=== PATIENT | male | born 1990 | race Two or more races ===

== ENCOUNTER 2020-10-20 17:52 | Emergency (ER) | payer SELFPAY ==
--- NOTE | 2020-10-20 18:50 | ER Document Report ---
ED Medical Screen (RME) - General Chief Complaint: Abdominal Pain Stated Complaint: UPPER ABDOMINAL PAIN Time Seen by Provider: 10/20/20 18:43 Mode of Arrival: Ambulatory Information source: Patient - HPI Patient complains to provider of: Left-sided abdominal pain Notes: 10/20/20 18:48 Patient here with complaints of some left lower/mid abdominal pain which started yesterday. Pain seems to be intermittent. Patient denies any nausea, vomiting, diarrhea. Denies any prior abdominal surgeries. No known history of diverticulitis or kidney stones. Pain seems to be somewhat better currently. He does report that the pain was quite severe earlier today. Exam: Nontoxic, no distress. Lungs clear and equal throughout. No focal abdominal tenderness on limited triage abdominal exam. Lungs clear and equal throughout. Heart sounds normal. An initial examination was made on the patient as part of the triage process, and it was determined a more comprehensive evaluation was necessary. Initial orders were placed and patient was transferred to another provider in the ED who assumed care and finished evaluation and plan. - Related Data Allergies/Adverse Reactions: No Known Allergies Allergy (Verified 10/20/20 18:38) Physical Exam - Vital signs Vitals: Temp Pulse Resp BP Pulse Ox 97.8 F 69 18 152/79 H 100 10/20/20 18:35 10/20/20 18:35 10/20/20 18:35 10/20/20 18:35 10/20/20 18:35 Course - Vital Signs Vital signs: Temp Pulse Resp BP Pulse Ox 97.8 F 69 18 152/79 H 100 10/20/20 18:35 10/20/20 18:35 10/20/20 18:35 10/20/20 18:35 10/20/20 18:35
--- NOTE | 2020-10-20 19:18 | RADIOLOGY REPORT (SQ) ---
EXAM DESCRIPTION: CT ABD/PELVIS NO ORAL OR IV IMAGES COMPLETED DATE/TIME: 10/20/2020 4:01 pm REASON FOR STUDY: left sided abd pain COMPARISON: None. TECHNIQUE: CT scan of the abdomen and pelvis performed without intravenous or oral contrast. Images reviewed with lung, soft tissue, and bone windows. Reconstructed coronal and sagittal MPR images revi ewed. All images stored on PACS. All CT scanners at this facility use dose modulation, iterative reconstruction, and/or weight based d osing when appropriate to reduce radiation dose to as low as reasonably achievable (ALARA). [facility]: Dose Right [facility]: CareDose [facility]: Dose Right [facility]: Teradose 4D [facility]: Elastera RADIATION DOSE: Total exam DLP 566mGy. LIMITATIONS: Suboptimal evaluation of the vasculature and solid organs due to lack of IV contrast. FINDINGS: LOWER CHEST: Lung bases are clear. NON-CONTRASTED LIVER, SPLEEN, ADRENALS: Evaluation limited by lack of IV contrast. No identified sign ificant masses. Marked diffuse decreased density of the hepatic parenchyma compatible with steatosis . There is some trace stranding along the inferior aspect of the spleen. PANCREAS: No masses. No peripancreatic inflammatory changes. GALLBLADDER: No identified stones by CT criteria. No inflammatory changes to suggest cholecystitis. RIGHT KIDNEY AND URETER: No suspicious masses. Assessment limited by lack of IV contrast. No signif icant calcifications. No hydronephrosis or hydroureter. LEFT KIDNEY AND URETER: No suspicious masses. Assessment limited by lack of IV contrast. No signifi cant calcifications. No hydronephrosis or hydroureter. AORTA AND RETROPERITONEUM: No aneurysm. No retroperitoneal masses or adenopathy. BOWEL AND PERITONEAL CAVITY: The stranding adjacent to the inferior aspect of the spleen abuts the pr oximal descending colon, though there is no significant adjacent wall thickening. No bowel dilatatio n. No other inflammatory change or fluid collection. APPENDIX: Normal. PELVIS, BLADDER, AND ABDOMINAL WALL:No abnormal masses. No free fluid. Bladder normal. BONES: No significant findings. OTHER: No other significant finding. IMPRESSION: 1. Mild fat stranding along the inferior aspect of the spleen which is otherwise normal in size with homogeneous density. The stranding abuts the adjacent colon without significant colon wall thickening. 2. Marked hepatic steatosis. COMMENT: Quality ID # [id number]: Final reports with documentation of one or more dose reduction techniques (e.g., Automated exposure control, adjustment of the mA and/or kV according to patient size, use of iterative reconstruction technique) TECHNICAL DOCUMENTATION: JOB ID: [id number] 2010 [employer]- All Rights Reserved Reading location - IP/workstation name: [email or web address]
[2020-10-20 19:24] LABS: HEMATOCRIT 45.5 % (37.9-51.0); HEMOGLOBIN 16.4 g/dL (13.5-17.0); MEAN CORPUSCULAR HEMOGLOBIN 32.6 pg (27.0-33.4); MEAN CORPUSCULAR HGB CONC 36.1 g/dL (32.0-36.0); MEAN CORPUSCULAR VOLUME 90 fl (80-97); PLATELET COUNT 262 10^3/uL (150-450); RED BLOOD COUNT 5.05 10^6/uL (4.35-5.55); RED CELL DISTRIBUTION WIDTH 13.5 % (11.5-14.0); WHITE BLOOD COUNT 10.5 10^3/uL (4.0-10.5)
[2020-10-20 19:26] LABS: APPEARANCE,URINE CLEAR; BILIRUBIN,URINE NEGATIVE (NEGATIVE); COLOR,URINE YELLOW; GLUCOSE, URINE NEGATIVE (NEGATIVE); KETONES,URINE NEGATIVE (NEGATIVE); LEUKOCYTE ESTERASE,URINE NEGATIVE (NEGATIVE); NITRITE,URINE NEGATIVE (NEGATIVE); PROTEIN,URINE NEGATIVE (NEGATIVE); URINE SPECIFIC GRAVITY 1.011
[2020-10-20 19:43] LABS: ALBUMIN 4.8 g/dL (3.5-5.0); ALKALINE PHOSPHATASE 95 U/L (38-126); ANION GAP 8 (5-19); ASPARTATE AMINO TRANSFERASE 77 U/L (17-59); BILIRUBIN,DIRECT 0.3 mg/dL (0.0-0.4); BILIRUBIN,TOTAL 0.9 mg/dL (0.2-1.3); BLOOD UREA NITROGEN 12 mg/dL (7-20); CALCIUM 10.2 mg/dL (8.4-10.2); CARBON DIOXIDE 30 mmol/L (22-30); CHLORIDE 102 mmol/L (98-107); GLUCOSE 106 mg/dL (75-110); POTASSIUM 3.9 mmol/L (3.6-5.0)
[2020-10-20 19:44] LABS: ABSOLUTE LYMPHOCYTES# (MANUAL) 3.2 10^3/uL (0.5-4.7); ABSOLUTE MONOCYTES # (MANUAL) 0.7 10^3/uL (0.1-1.4); BAND NEUTROPHILS % (MANUAL) 1 % (3-5); BASOPHILS % (MANUAL) 0 % (0-2); EOSINOPHILS % (MANUAL) 2 % (0-6); LYMPHOCYTES % (MANUAL) 23 % (13-45); MONOCYTES % (MANUAL) 7 % (3-13); SEGMENTED NEUTROPHILS % (MAN) 60 % (42-78); TOTAL CELLS COUNTED 100
[2020-10-20 19:47] LABS: PLATELET COMMENT ADEQUATE; PLATELET LARGE PRESENT; RBC MORPHOLOGY COMMENT NORMO-CYTIC/CHROMIC
--- NOTE | 2020-10-20 20:55 | ER Document Report ---
ED General - General Chief Complaint: Abdominal Pain Stated Complaint: UPPER ABDOMINAL PAIN Time Seen by Provider: 10/20/20 18:43 Mode of Arrival: Ambulatory - HPI Context: Chief Complaint: [Left upper quadrant abdominal pain] [This is a 30-year-old male who presents to the emergency department complaining of left upper quadrant pain that has been present for approximately 2 days. Patient denies history of recent trauma, recent infection, cough, fever, chills, shortness of breath, history of COVID-19 infection, sore throat, excessive fatigue. Patient states he has heartburn at least a couple times a week but states that the pain he is having today does not feel like his typical heartburn. ] History obtained from [patient] Symptoms began:[2 days ago] Onset: [Gradual] Timing: [Gradual] Quality: [Sharp] Intensity: [3] Location: [Left upper quadrant] Radiation: [Denies] [The pain does not migrate to a new location.] Aggravating factors: Deep breath Relieving factors: [none] [Denies] SOB [Denies] nausea [Denies] vomiting [Denies] sweats [Denies] fever [Denies] cough [Denies] calf or leg swelling or pain - Related Data Allergies/Adverse Reactions: No Known Allergies Allergy (Verified 10/20/20 18:38) Past Medical History - General Information source: Patient - Social History Smoking Status: Current Every Day Smoker Family History: Reviewed & Not Pertinent Review of Systems - Review of Systems Notes: Review of systems as below unless otherwise stated in HPI. CONSTITUTIONAL [No] fever, [No] chills. EYES [No] eye pain. ENT [No] URI symptoms, [No] sore throat, [No] ear pain. CARDIOVASCULAR [No] chest pain, [No] palpitations, [No] edema. RESPIRATORY [No] Cough, [No] SOB, [No] wheezing. GASTROINTESTINAL Positive abdominal pain, [No] nausea, [No] Diarrhea, [No] Vomiting, [No] constipation, [No] melena, [No] rectal bleeding. GENITOURINARY [No] dysuria, [No] urinary frequency, [No] hematuria, [No] urinary urgency MUSCULOSKELETAL [No] Back pain. SKIN [No] Rash. NEUROLOGIC [No] Headache, [No] recent seizures, [No] paralysis,[No] parathesias. ENDOCRINE [No] polyuria. HEMO/LYMPATIC [No] easy brusing PSYCHIATRIC [No] depression. Physical Exam - Vital signs Vitals: Temp Pulse Resp BP Pulse Ox 97.8 F 69 18 152/79 H 100 10/20/20 18:35 10/20/20 18:35 10/20/20 18:35 10/20/20 18:35 10/20/20 18:35 - Notes Notes: CONSTITUTIONAL [Vital signs reviewed, Patient appears comfortable, Alert and oriented X 3, Normal stature. Nontoxic appearance] HEAD [Atraumatic, Normocephalic.] EYES [Eyes are normal to inspection, No discharge from eyes, Extraocular muscles intact, Sclera are normal, Conjunctiva are normal.] ENT [External ears normal to inspection, Nose examination normal, Mouth normal to inspection.] NECK [Normal ROM, No jugular venous distention, No meningeal signs, ] RESPIRATORY CHEST [Chest is nontender, Breath sounds normal, No respiratory distress.] CARDIOVASCULAR [RRR, No murmurs, Normal S1 S2, No rub, No gallop.] ABDOMEN [Abdomen is mildly tender to palpation in the left upper quadrant, No pulsatile masses, No other masses, Bowel sounds normal, No distension, No peritoneal signs, No hernias.] BACK [There is no CVA Tenderness, There is no tenderness to palpation, Normal inspection.] UPPER EXTREMITY [Inspection normal, No cyanosis, No clubbing, No edema, LOWER EXTREMITY [Inspection normal, No cyanosis, No clubbing, No edema, No calf tenderness, NEURO [No focal motor deficits, No focal sensory deficits, Speech normal.] SKIN [Skin is warm, Skin is dry, Skin is normal color.] PSYCHIATRIC [Normal affect. ] Course - Re-evaluation Re-evalutation: 10/20/20 20:55 Differential diagnosis: Lymphadenitis, viral infection 10/20/20 21:15 MDM: The patient's CAT scan shows mild fat stranding along the inferior aspect of the spleen which is otherwise normal in size with homogenous density. The impression also states that the stranding abuts the adjacent colon without significant colon wall thickening. These findings were discussed with Dr. Mane with radiology partners at 2100 hrs. He stated that looking at the CT scan while not typical in location, the appearance of the previously noted fat stranding seems most suggestive of epiploic appendagitis. Based on this d iscussion with the radiologist, I am inclined just to treat the patient with NSAIDs. I am also going to give him instructions on [id number] proton pump inhibitors and use of Pepcid to help with heartburn symptoms. All results of ED MSE discussed with patient. All questions were answered prior to discharge. Emergency signs and symptoms, reasons to return to the emergency department discussed with patient. - Vital Signs Vital signs: Temp Pulse Resp BP Pulse Ox 97.8 F 69 18 152/79 H 100 10/20/20 18:35 10/20/20 18:35 10/20/20 18:35 10/20/20 18:35 10/20/20 18:35 - Laboratory Results Result Diagrams: 10/20/20 19:11 10/20/20 19:11 Laboratory Results Interpreted: 10/20/20 10/20/20 10/20/20 19:11 19:11 19:11 [facility]CHC 36.1 H Band Neutrophils % 1 L AST 77 H ALT 166 H Urine Urobilinogen 2.0 H Critical Laboratory Results Reviewed: Yes Attending or Supervising Physician who Reviewed Labs: JUANCHO CHAHAL IV - Radiology Results Critical Radiology Results Reviewed: Yes Attending or Supervising Physician who Reviewed Radiology: JUANCHO CHAHAL IV Discharge - Discharge Clinical Impression: Acute lymphadenitis Condition: Stable Disposition: HOME, SELF-CARE Additional Instructions: Return to the Emergency Department without delay if any worse. Purchase some Zegerid from your local drugstore and take 1 tablet each morning to help prevent heartburn symptoms. You can also purchase some Pepcid (famotidine) 20 mg tablets and take 4 of them at one time for severe "middle of the night" heartburn. HOME CARE INSTRUCTIONS & INFORMATION: Thank you for choosing us for your medical needs. We hope you're satisfied with the care you received. After you leave, you must properly care for your problem and, at the same time, observe its progress. Any condition can change. Some illnesses can change rapidly over hours or days. If your condition worsens, return to the Emergency Department or see your physician promptly. ABOUT YOUR X-RAYS AND EKG'S: If you had an EKG or X-rays taken, they have been read by the Emergency Physician. The X-rays and EKG's will also be read by a Radiologist or Outside Medical Sales Representative within 24 hours. If discrepancies are noted, you will be notified by telephone. Please be certain the ED has a correct telephone number & address where you can be reached. Also, realize that some fractures or abnormalities do not show up on initial X-rays. If your symptoms continue, see your physician. ABOUT YOUR LABORATORY TEST: If you had laboratory tests, the results have been reviewed by the Emergency Physician. Some test results (for example cultures) may not be available for several days. You will be contacted if any test result shows you need additional treatment. Please be certain the ED has a correct telephone number and address where you can be reached. ABOUT YOUR MEDICATIONS: You will receive instructions on how to take your medicine on the prescription label you receive. Additional information may be provided by the Pharmacy. If you have questions afterwards, call the ED for clarification or further instructions. Some prescribed medications may cause drowsiness. Do not perform tasks such as driving a car or operating machinery without consulting your Pharmacist. If you feel you need a refill of pain medication, your condition will need re-evaluation. Please do not call for a refill of any medication. ABOUT YOUR SIGNATURE: Signature of this document acknowledges to followin. Understanding that you received emergency treatment and that you may be released before al medical problems are known or treated. Please be certain the ED has a correct phone number & address where you can be reached. 2. Acknowledgement that you will arrange for follow-up care as recommended. 3. Authorization for the Emergency Physician to provide information to your follow-up Physician in order to maximize your care. AT ANY TIME, IF YOUR SYMPTOMS CHANGE SIGNIFICANTLY OR WORSEN OR YOU DEVELOP NEW SYMPTOMS, RETURN TO THE EMERGENCY DEPARTMENT IMMEDIATELY FOR RE-EVALUATION. OUR GOAL IS TO PROVIDE EXCELLENT MEDICAL CARE! WE HOPE THAT WE HAVE MET YOUR EXPECTATIONS DURING YOUR EMERGENCY DEPARTMENT VISIT AND THAT YOU FEEL YOU HAVE RECEIVED EXCELLENT CARE! Lymphadenopathy You have enlargement of lymph glands, called lymphadenopathy. Lymph glands filter tissue fluids. They help to fight infection. Most of the time, enlarged lymph glands are not serious. Lymph glands may react to a viral or bacterial infection by becoming swolle n and painful. When the infection goes away, the glands shrink. Sometimes a lymph gland will remain enlarged for a long time after an infection. Occasionally, a lymph gland may be overwhelmed by infection and form an abscess. If an enlarged lymph gland has signs that are suspicious for tumor, the doctor will recommend a biopsy. A suspicious gland usually is NOT painful, grows very slowly, and is rock-hard to touch. See the doctor or return if there is increasing swelling and redness, high fever, difficulty breathing, or any other change for the worse. Prescriptions: Ibuprofen [Ibu] 800 mg PO Q8HP PRN #15 tablet PRN Reason: pain Referrals: HADLEY FELIPE MD [HONORARY] - Follow up as needed
[2020-10-20] MEDS ORDERED: IBUPROFEN 600 MG TABLET PO ONE (21:20)
[2020-10-20 22:12] VITALS: BP 140/93
== END 2020-10-20 22:09 | disposition home or self-care (01) ==
LOC: ER 17:52
DX: L04.9 Acute lymphadenitis, unspecified (principal); R10.12 Left upper quadrant pain; F17.200 Nicotine dependence, unspecified, uncomplicated
CPT/HCPCS: 36415; 74176; 80053; 81001; 83690; 85025; 99284